=== PATIENT | female | born 1985 | race Caucasian/White ===

== ENCOUNTER 2021-01-16 13:08 | Emergency (ER) | payer OTHER, SELFPAY ==
[2021-01-16 13:15] VITALS: BP 130/80; PULSE 80; RESP 16; TEMP 36.4; O2SAT 99
--- NOTE | 2021-01-16 13:15 | ED.FEMALEGU ---
HPI - Female Genitourinary General Chief complaint: Urogenital-Female Stated complaint: uti symptoms Time Seen by Provider: 01/16/21 13:15 Source: patient and RN notes reviewed History of Present Illness HPI Narrative: Patient is a 36-year-old female who presents the urgent care with complaints of a possible UTI. Patient states that she has blood in the urine as well as a lot of frequency and urgency of urination. Patient states that it started last night. Denies of any fever, chills, nausea, vomiting. Patient does report of some suprapubic pressure and tenderness. Patient has not taken anything [id number] for her symptoms. Denies of any history of UTIs. No other acute complaints. No acute distress noted. Patient aware of the plan of care. Some parts of this dictation were generated by voice recognition software and may contain typographical and/or grammatical inaccuracies. Related Data Home Medications Medication Instructions Recorded Confirmed cariprazine [Vraylar] mg 01/16/21 escitalopram oxalate mg 01/16/21 lamotrigine 01/16/21 Allergies Allergy/AdvReac Type Severity Reaction Status Date / Time morphine Allergy Unknown Verified 11/21/18 15:20 Review of Systems Review of Systems: Narrative: CONSTITUTIONAL: Denies fever, chills, or sweats. EYES: Denies visual changes, redness, or discharge. ENT: Denies rhinorrhea, congestion, sore throat, or otalgia. CARDIOVASCULAR: Denies chest pain, palpitations, or edema. RESPIRATORY: Denies cough or dyspnea. GASTROINTESTINAL: Reports of suprapubic tenderness without nausea, vomiting or diarrhea GENITOURINARY: Reports of hematuria, frequency and urgency SKIN: Denies rash or itching. MUSCULOSKELETAL: Denies back pain, joint pain, or myalgia. NEUROLOGIC: Denies headache, numbness, or weakness. All other systems reviewed are negative, except as documented in HPI. PMFSH Comments At the time of my signature, I reviewed and agree with the nursing past medical, surgical, social, and family history. There is no relevant family history pertinent to the patient complaint. Exam Narrative: Exam Narrative: GENERAL: This is a well-nourished, well-developed patient, in no apparent distress. HEAD: normocephalic, atraumatic. EYES: PERRL. Sclera clear/white. Vision is grossly intact. EARS: External ears normal NOSE: External nose normal with no obvious nasal discharge, nares without redness, no rhinorrhea. THROAT: Mucous membranes moist NECK: Neck supple CARDIOVASCULAR: Regular rate and rhythm without murmurs, gallops, or rubs. RESPIRATORY: Clear to auscultation. Breath sounds equal bilaterally. No wheezes, rales, or rhonchi. GASTROINTESTINAL: Abdomen soft, suprapubic tenderness, nondistended. Bowel sounds are active. SKIN: warm, intact with no suspicious lesions or rash, good texture and turgor. NEURO: awake, alert, and oriented to person, place and time. There were no obvious focal neurologic abnormalities. EXTREMITIES: No clubbing, cyanosis, or edema. BACK: Bilateral CVA tenderness Course Vital Signs Vital signs: Vital Signs Temperature 97.5 F L 01/16/21 13:15 Pulse Rate 80 01/16/21 13:15 Respiratory Rate 16 01/16/21 13:15 Blood Pressure 130/80 01/16/21 13:15 Pulse Oximetry 99 01/16/21 13:15 Temperature 97.5 F L 01/16/21 13:15 Pulse Rate 80 01/16/21 13:15 Respiratory Rate 16 01/16/21 13:15 Blood Pressure 130/80 01/16/21 13:15 Pulse Oximetry 99 01/16/21 13:15 Reviewed MDM - Female Genitourinary MDM Narrative Medical decision making narrative: Reviewed urinalysis results with the patient. She is aware that does show blood and positive nitrates which do indicate urinary tract infection. We will culture the urine and call if medication needs to be changed, based on culture results. If you are questioning your culture results you may call after 3 days to check on the lab work. Advised the patient to complete oral antibiotic regimen
== END 2021-01-16 13:34 | disposition home or self-care (01) ==
PROVIDERS: Emergency Provider Nurse Practitioner Family; PCP Physician Assistant
DX: N39.0 Urinary tract infection, site not specified (principal)
CPT/HCPCS: 81003; 87077; 87086; 87088; 87186; 99213; G0463

== ENCOUNTER 2022-08-10 10:56 | Outpatient (CLI) | payer OTHER, SELFPAY ==
--- NOTE | ~2022-08-10 | XR_ITS ---
EXAMINATION: XR abdomen/kub 1V DATE: 08/10/2022 13:12 INDICATION: Vomiting. TECHNIQUE: A supine view of the abdomen on 2 radiographs was obtained. COMPARISON: None. FINDINGS: There are no dilated loops of bowel. There is a small volume of stool in the colon. Surgica l clips in the right upper quadrant are likely from cholecystectomy. There is an intrauterine device in expected position. IMPRESSION: 1. Normal bowel gas pattern. Reviewed, dictated and finalized at location A. H PUNCHER
--- NOTE | ~2022-08-10 | XR_ITS ---
UGI-AIR CONTRAST/SMALL BOWEL INDICATION: Generalized abdominal pain. Nausea. TECHNIQUE: Serial images of the upper GI tract structures and small bowel are performed following ora l administration of barium using double contrast technique. COMPARISON: None FINDINGS: Barium flowed readily through the esophagus without evidence of hernia or reflux. There is a possible mucosal abnormality of the middistal esophagus with shouldering of the mucosa, although th is is not confirmed on additional images. Gastric contour, mucosa and motility are normal. The duode nal bulb fills and empties regularly and has a normal mucosal pattern. The duodenal sweep is in norm al position. The mucosal pattern of the small bowel is unremarkable with normal transit time to the colon. IMPRESSION: 1.: Possible mucosal abnormality of the middistal esophagus with shouldering of the mucosa. Cannot ex clude mucosal abnormality. Consider correlation with endoscopy. Reviewed, dictated and finalized at location A. TEACHER IMPRESSION: 1.: Possible mucosal abnormality of the middistal esophagus with shouldering of the mucosa. Cannot exclude mucosal abnormality. Consider correlation with endo scopy.
== END 2022-08-10 10:57 | disposition home or self-care (01) ==
PROVIDERS: PCP Physician Assistant; Visit Provider Physician Assistant
DX: R11.10 Vomiting, unspecified (principal); R93.3 Abnormal findings on diagnostic imaging of other parts of digestive tract
CPT/HCPCS: 74018; 74246; 74248

== ENCOUNTER 2022-08-22 12:00 | Emergency (ER) | payer OTHER, SELFPAY ==
[2022-08-22] VITALS (13 sets, daily range): BP systolic 113–138; BP diastolic 58–83; PULSE 44–78; RESP 10–21; TEMP 36.4; O2SAT 96–100
--- NOTE | ~2022-08-22 | CT_ITS ---
EXAMINATION: CT abdomen pelvis w con DATE: 08/22/2022 15:28 INDICATION: Nausea and vomiting. Diarrhea. Epigastric abdominal pain. TECHNIQUE: Computed tomography (CT) of the abdomen and pelvis was performed with 100 mL Omnipaque 350 intravenous contrast. Automated exposure control and iterative reconstruction technique were employe d. The dose-length product was 358.86 mGy-cm. COMPARISON: None. FINDINGS: The visualized portions of the lung bases are clear without pneumonia or pleural effusion. The heart size is normal. No pericardial effusion. The liver is normal. There are changes of cholecys tectomy. The spleen, pancreas, adrenal glands, and kidneys are normal. A 3 mm density left kidney may be contrast or a calyceal stone. There is an intrauterine device in expected position. The appendix is normal. There are no dilated loops of bowel. There are no pathologically enlarged lymph nodes. The re is physiologic fluid in the pelvis. There is mild thoracic spondylosis. IMPRESSION: 1. No etiology for the patient's symptoms. Reviewed, dictated and finalized at location A. NDS KEEPER
[2022-08-22 13:24] LABS: Appearance Urine Clear (Clear); Bilirubin Urine 1+ (Negative); Blood Urine Trace-intact (Negative); Color Urine Yellow (Yellow); Glucose Urine UA Negative (Negative); Ketones Urine 4+ mg/dL (Negative); Leukocyte Esterase Ur Negative LEU/UL (Negative); Nitrate Urine Negative (Negative); Protein Urine 1+ mg/dL (Negative); Specific Grav Ur >= 1.030 (1.001-1.035)
[2022-08-22 13:25] LABS: Basophils Percent Auto 0.2 % (0.2-1.2); Eosinophils Percent Auto 0.1 % (0-4.4); Hematocrit 46.2 % (37.0-47.0); Hemoglobin 16.2 g/dL (12.0-15.0); Immature Granulocyte Absolute 0.04 K/mm3 (0.00-0.031); Immature Granulocyte Percent A 0.4 % (0-0.5); Lymphocytes Percent Auto 5.6 % (18.3-44.2); Mean Corpuscular HGB Conc 35.1 g/dl (32-36); Mean Corpuscular Volume 91.3 fl (80-100); Mean Platelet Volume 9.6 fl (7.4-10.4); Monocytes Absolute Auto 0.3 K/mm3 (0.1-0.6); Monocytes Percent Auto 2.5 % (2.6-8.5); Neutrophils Absolute Auto 9.7 K/mm3 (1.3-6.7); Neutrophils Percent Auto 91.2 % (45.5-73.1); Platelet Count Result 320 k/mm3 (150-375); Red Blood Count 5.06 M/mm3 (4.2-5.4); Red Cell Distribution Width 12.9 % (11.5-14.5); White Blood Count 10.6 K/mm3 (4.5-10.0)
[2022-08-22 13:29] LABS: Mucus Urine Few /lpf; RBC Urine 0-2 /hpf (0-2); Squamous Epithelial Cell Urine Many /hpf (Few); WBC Urine 0-3 /hpf
[2022-08-22 13:31] LABS: Add Urine Microscopic? YES
[2022-08-22 13:39] LABS: Alanine Aminotransferase 111 U/L (6-35); Albumin Level 4.9 g/dL (3.5-5.1); Alkaline Phosphatase 139 U/L (38-126); Anion Gap 10 mmol/L (8-16); Aspartate Amino Transferase 58 U/L (14-36); Blood Urea Nitrogen 10 mg/dL (7-17); Calcium 9.5 mg/dL (8.4-10.2); Carbon Dioxide 23 mmol/L (22-30); Chloride 104 mmol/L (98-107); Estimated CRCL calculation 110 ml/min; Estimated Glomerular Filt Rate > 60; Glucose 191 mg/dL (65-110); Lipase 20 U/L (23-300); Potassium 4.1 mmol/L (3.4-5.0); Sodium 137 mmol/L (137-145)
--- NOTE | 2022-08-22 14:55 | ED.NAVMDI ---
HPI - Nausea/Vomiting/Diarrhea General Chief complaint: Nausea/Vomiting/Diarrhea Stated complaint: n/v Time Seen by Provider: 08/22/22 14:46 History of Present Illness HPI Narrative: Patient is a 37-year-old female with a history of cholecystitis status post cholecystectomy here for evaluation of epigastric abdominal pain, nausea and vomiting today. Patient states that she has been dealing with chronic abdominal pain for the past several months. She has seen her primary care doctor who ordered laboratory and upper GI series that have been unrevealing. She is set to follow-up with GI but has not yet seen them yet. States that today her pain acutely worsened, has been unable to keep down any p.o. No fevers, chills, diarrhea or constipation. Her and daughter had similar symptoms last week, which resolved. Related Data Home Medications Medication Instructions Recorded Confirmed cariprazine 1.5 mg capsule mg 01/16/21 (Vraylar) escitalopram oxalate 20 mg tablet mg 01/16/21 lamotrigine 25 mg tablet 01/16/21 Allergies Allergy/AdvReac Type Severity Reaction Status Date / Time morphine Allergy Unknown Hives Verified 08/22/22 15:11 Review of Systems Review of Systems: Gen: Denies fevers or chills Eyes: Denies eye pain or visual change ENT: Denies congestion Respiratory: Denies shortness of breath or cough CV: Denies chest pain or palpitations GI: Reports abdominal pain, nausea and vomiting denies burning, urgency, frequency or hematuria Musculoskeletal: Denies back pain or muscle pain Neuro: Denies numbness, tingling, weakness or focal weakness Skin: Denies rash Except as documented, all other systems reviewed and negative Exam Narrative: APPEARANCE: Uncomfortable appearing Head: Normocephalic and atraumatic. EYES: PERRLA/EOMI, conjunctivae clear NOSE: No nasal drainage EARS: External ear normal in appearance THROAT: Oropharynx is clear. Mucous membranes are moist. NECK: Supple. No adenopathy, no masses. RESPIRATORY: Airway patent, respirations nonlabored. Clear to auscultation bilaterally, no rales, rhonchi, wheezing. CARDIOVASCULAR: Slow rate. Regular rhythm without murmurs, rubs, or gallops. ABDOMINAL: Tenderness to palpation in the epigastric region. Normoactive bowel sounds. Soft, nontender, nondistended. No rebound tenderness or guarding. MUSCULOSKELETAL: Extremities are warm and well-perfused. Moves all extremities well. No edema. NEURO: Normal speech. No focal neurologic deficits. SKIN: Skin is warm and dry. No rashes. PSYCHIATRIC: Normal affect/mood. Course Vital Signs Vital signs: Vital Signs Temperature 97.5 F L 08/22/22 12:54 Pulse Rate 56 L 08/22/22 12:54 Respiratory Rate 16 08/22/22 12:54 Blood Pressure 131/75 08/22/22 12:54 Pulse Oximetry 100 08/22/22 12:54 Oxygen Delivery Room Air 08/22/22 12:54 Temperature 97.5 F L 08/22/22 12:54 Pulse Rate 58 L 08/22/22 16:16 Respiratory Rate 18 08/22/22 16:16 Blood Pressure 127/83 08/22/22 16:15 Pulse Oximetry 99 08/22/22 16:16 Oxygen Delivery Room Air 08/22/22 12:54 MDM - Nausea/Vomiting/Diarrhea MDM Narrative Medical decision making narrative: 37-year-old female here for evaluation of nausea, vomiting, epigastric pain over the past day, unable to tolerate p.o. at home. She is uncomfortable appearing, noted to have a slow heart rate in the 50s, vital signs otherwise normal. No weakness, AMS or chest pain; ekg is in sinus greta. Does have some tenderness to palpation in the epigastric region with no rebound tenderness or guarding. Labs significant for hemoconcentration. She has a mild transaminitis. She has 4+ ketones in her urine but no evidence of infection. CT abdomen pelvis is negative for acute process. Patient was rehydrated with LR, given nausea and pain medicine with great improvement of her symptoms, able to tolerate PO. Was offered admission for continued hydration which she declined
--- NOTE | 2022-08-22 14:58 | ECG_ITS ---
Measurements Intervals [place] Rate: 52 P: 39 AK: 137 QRS: 35 QRSD: 108 T: 25 QT: 448 QTc: 418 Interpretive Statements SINUS BRADYCARDIA NONSPECIFIC ST-T CHANGE ANTERIORLY NO PREVIOUS ECG AVAILABLE FOR COMPARISON Electronically Signed On 08-23-2022 11:26:31 OPERATING ROOM ASSISTANT by Elva Blancas M.D.
[2022-08-22] MEDS: ONDANSETRON INJ 4 MG/2 ML VIAL IV PUSH (15:10)
[2022-08-22] MEDS: HYDROmorphone HCL INJ (*CRX) 1 MG/ML SYR 0.5 MG IV PUSH (15:10)
[2022-08-22] MEDS: LACTATED RINGERS 1,000 ML 999 ML IV CONT ×2 (15:10→16:23)
[2022-08-22 15:49] LABS: Troponin I < 0.012 ng/mL (0.000-0.034)
[2022-08-22] MEDS: PROCHLORPERAZINE EDISYLATE 10 MG/2 ML VIAL IV PUSH (18:09)
== END 2022-08-22 18:10 | disposition home or self-care (01) ==
PROVIDERS: Emergency Medicine; Emergency Provider Physician Assistant; PCP Physician Assistant
DX: K52.9 Noninfective gastroenteritis and colitis, unspecified (principal); R00.1 Bradycardia, unspecified; R94.31 Abnormal electrocardiogram [ECG] [EKG]
CPT/HCPCS: 36415; 74177; 80053; 81001; 81025; 83690; 84484; 85025; 93005; 96361; 96374; 96375; 99284; J0780; J1170; J2405; J7120; Q9967

== ENCOUNTER → 2022-08-30 09:27 | Outpatient (CLI) | payer OTHER, SELFPAY ==
--- NOTE | ~2022-08-30 | US_ITS ---
US thyroid INDICATION: Abnormal thyroid function tests. TECHNIQUE: Real-time sonographic images of the thyroid gland were obtained. COMPARISON: No prior studies for comparison. FINDINGS: The right thyroid lobe measures 5 x 1.8 x 1.6 cm. The left thyroid lobe measures 4.5 x 1.3 x 1.7 cm. There is normal echotexture and echogenicity throughout the thyroid gland. No discrete nod ules identified. Normal vascular flow is present. IMPRESSION: 1. Normal thyroid without discrete nodule or abnormal vascularity. Reviewed, dictated and finalized at location L. TIC INSTRUCTOR
== END ==
PROVIDERS: PCP Physician Assistant; Visit Provider Physician Assistant
DX: R94.6 Abnormal results of thyroid function studies (principal)
CPT/HCPCS: 76536

== ENCOUNTER 2025-05-27 14:00 | Emergency (ER) | payer OTHER, SELFPAY ==
--- NOTE | ~2025-05-27 | CT_ITS ---
EXAMINATION: CT abdomen pelvis w con DATE: 05/27/2025 17:34 INDICATION: 40-year-old with upper abdominal pain, nausea vomiting and diarrhea. TECHNIQUE: Computed tomography (CT) of the abdomen and pelvis was performed 100 mL intravenous contrast. Automated exposure control and iterative reconstruction technique were employed. The dose-length product was 761.59 mGy-cm. COMPARISON: CT dated 08/22/2022. FINDINGS: Lung bases do not show acute findings. Small hiatus hernia. No focal lesions liver and spleen. Gallbladder is absent. Bile ducts, pancreas and kidneys do not show acute findings. No evidence of small bowel obstruction. Normal size appendix. No evidence of small bowel obstruction. No pelvic masses or fluid collections. IUD in place. IMPRESSION: 1. No significant acute findings in the upper abdomen and in the pelvis. Reviewed, dictated and finalized at location T. [facility]
[2025-05-27 14:22] VITALS: BP 151/84; PULSE 56; RESP 18; TEMP 36.4; O2SAT 99
--- NOTE | 2025-05-27 14:41 | ED_ITS ---
HPI - Nausea/Vomiting/Diarrhea General Chief complaint: Nausea/Vomiting/Diarrhea <Yaneth Mendez PA-C - Last Filed: 05/27/25 14:52> Stated complaint: vomiting since monday night <Yaneth Mendez PA-C - Last Filed: 05/27/25 14:52> Time Seen by Provider: 05/27/25 14:41 <Yaneth Mendez PA-C - Last Filed: 05/27/25 14:52> Focused HPI: Patient is a 40 year-old female who presents the ED with report of nausea, vomiting, diarrhea. Patient reports she was started on Zepbound 2.5 mg last Monday. Had 2 days of nausea and vomiting after her 1st dose, but then states she felt improved. Took her 2nd dose this past Monday and has had persistent N/V/D since then. Has been unable to keep down any food or drink. Reports having some streaks of blood in her emesis. Reports diffuse pain throughout her abdomen, worse throughout her upper abdomen. Denies fevers, cough, congestion. Denies family members with similar symptoms. GENERAL: Uncomfortable-appearing, well-nourished, and in no acute distress. HEAD: Normocephalic, atraumatic. CHEST: Clear to auscultation. ?No respiratory distress. HEART: Regular rate and rhythm.? ABD: Diffuse tenderness, more focal TTP in epigastric region/RUQ NEURO: ?Alert and oriented x3. Patient screened in triage and initial orders placed.? ?Additional care and disposition to be based upon?diagnostic testing and treatment. <Yaneth Mendez PA-C - Last Filed: 05/27/25 14:52> Source: patient <Yaneth Mendez PA-C - Last Filed: 05/27/25 14:52> Mode of arrival: ambulatory <Yaneth Mendez PA-C - Last Filed: 05/27/25 14:52> Limitations: no limitations <KYE Knight Last Filed: 05/27/25 14:52> History of Present Illness HPI Narrative: I agree with the above HPI <Chris Love MD - Last Filed: 06/01/25 08:04> Related Data Home medications: Home Medications ?Medication ?Instructions ?Recorded ?Confirmed ?Last Taken ?Type cariprazine 1.5 mg capsule mg 01/16/21 Unknown Histor y (Monetr) escitalopram oxalate 20 mg tablet mg 01/16/21 Unknown History lamotrigine 25 mg tablet 01/16/21 Unknown History <Yaneth Mendez PA-C - Last Filed: 05/27/25 14:52> Allergies/Adverse reactions: Allergies Allergy/AdvReac Type Severity Reaction Status Date / Time morphine Allergy Unknown Hives Verified 08/22/22 15:11 <Yaneth Mendez PA-C - Last Filed: 05/27/25 14:52> Review of Systems 2 Review of Systems: All systems reviewed & are unremarkable except as noted in HPI and below <Chris Love MD - Last Filed: 06/01/25 08:04> Exam 2 Narrative: APPEARANCE: Uncomfortable appearing HEAD: normocephalic, atraumatic. EYES: PERRLA/EOMI, conjunctivae clear. NOSE: Normal no drainage EARS:TMS clear with good light reflex. THROAT: Pharynx clear, no exudate. NECK: Supple. No adenopathy, no masses. RESPIRATORY: Airway patent, respirations nonlabored. Clear to auscultation bilaterally, no rales, rhonchi, wheezing. CARDIOVASCULAR: Regular rate and rhythm without murmurs rubs or gallops. ABDOMINAL: Soft, nontender, nondistended, normal bowel sounds MUSCULOSKELETAL: Moves all extremities. Strength/ROM intact, No edema, No calf tenderness. NEURO: Alert. Cranial nerves II through XII intact. Good gait. Good coordination SKIN: Warm, dry. Normal Color <Chris Love MD - Last Filed: 06/01/25 08:04> Course Vital Signs Vital signs: Vital Signs Temperature 97.6 F 05/27/25 14:22 Pulse Rate 56 L 05/27/25 14:22 Respiratory Rate 18 05/27/25 14:22 Blood Pressure 151/84 H 05/27/25 14:22 Pulse Oximetry 99 05/27/25 14:22 Temperature 97.6 F 05/27/25 14:22 Pulse Rate 57 L 05/27/25 18:56 Respiratory Rate 16 05/27/25 18:56 Blood Pressure 126/75 05/27/25 18:56 Pulse Oximetry 99 05/27/25 18:56 Oxygen Delivery Room Air 05/27/25 16:34 <Yaneth Mendez PA-C - Last Filed: 05/27/25 14:52> Vital Signs Temperature 97.6 F 05/27/25 14:22 Pulse Rate 56 L 05/27/25 14:22 Respiratory Rate 18 05/27/25 14:22 Blood Pressure 151/84 H 05/27/25 14:22 Pulse Oximetry 99 05/27/25 14:22 Temperature 97.6 F 05/27/25 14:22 Pulse Rate 57 L 05/27/25 18:56 Respiratory Rate 16 05/27/25 18:56 Blood Pressure 126/75 05/27/25 18:56 Pulse Oximetry 99 05/27/25 18:56 Oxygen Delivery Room Air 05/27/25 16:34 <Chris Love MD - Last Filed: 06/01/25 08:04> MDM - Nausea/Vomiting/Diarrhea MDM Narrative Medical decision making narrative: MSE by KARMEN in triage <Yaneth Mendez PA-C - Last Filed: 05/27/25 14:52> MSE by KARMEN in triage 40-year-old female presenting to the emergency department for evaluation for nausea vomiting abdominal cramping secondary to GLP 1 inhibitor. Patient is currently afebrile but does have a leukocytosis of 13.2 and hemoglobin of 16.7. Patient's creatinine is 0.69. Patient does have mild elevation of ALT alk-phos with normal lipase and normal T bili. UA was negative for infection. CT abdomen pelvis shows no acute abnormality. Patient was treated with 2 doses of IV Reglan, a L of normal saline a L of lactated Ringer's and a GI cocktail. Patient was advised to refrain from additional GLP 1 inhibitors, patient will be provided Reglan for nausea control. Patient was advised to follow a clear liquid diet. Patient was comfortable the plan for discharge and close follow- up. I suspect patient's symptoms are secondary to an adverse medication reaction. No infectious etiology was identified. <Chris Love MD - Last Filed: 06/01/25 08:04> Differential Diagnosis Differential diagnosis: Likely traveler's diarrhea, food poisoning, gastroenteritis, clostridium difficile infection, drug-induced nausea and vomiting and dehydration <Chris Love MD - Last Filed: 06/01/25 08:04> Lab Data Attestation: I reviewed the patient's lab results. <Chris Love MD - Last Filed: 06/01/25 08:04> Result diagrams: 05/27/25 15:15 05/27/25 15:15 <Yaneth Mendez PA-C - Last Filed: 05/27/25 14:52> Labs: Lab Results 05/27/25 Range/Units 15:15 WBC 13.2 H (4.5-10.0) K/mm3 RBC 5.11 (4.2-5.4) M/mm3 Hgb 16.7 H (12.0-15.0) g/dL Hct 46.3 (37.0-47.0) % MCV 90.6 (80-100) fl MCH 32.7 (26-34) pg MCHC 36.1 H (32-36) g/dl RDW 13.1 (11.5-14.5) % Plt Count 461 H (150-375) k/mm3 MPV 8.9 (7.4-10.4) fl Immature Gran % (Auto) 0.3 (0-0.5) % Neut % (Auto) 70.4 (45.5-73.1) % Lymph % (Auto) 21.5 (18.3-44.2) % Coos % (Auto) 7.4 (2.6-8.5) % Eos % (Auto) 0.3 (0-4.4) % Baso % (Auto) 0.1 L (0.2-1.2) % Lymph # (Auto) 2.83 (0.9-3.2) K/mm3 Coos # (Auto) 1.0 H (0.1-0.6) K/mm3 Eos # (Auto) 0.0 (0-0.3) K/mm3 Baso # (Auto) 0.0 (0.0-0.1) K/mm3 Abs Immat Gran (auto) 0.04 H (0.00-0.031) K/mm3 Absolute Neuts (auto) 9.3 H (1.3-6.7) K/mm3 Absolute Nucleated RBC 0.000 (0.0-0.012) K/mm3 Nucleated RBC % 0.0 (0.0-0.2) % Sodium 140 (137-145) mmol/L Potassium 3.4 (3.4-5.0) mmol/L Chloride 99 (98-107) mmol/L Carbon Dioxide 28 (22-30) mmol/L Anion Gap 13 H (4-12) mmol/L BUN 10 (7-17) mg/dL Creatinine 0.69 L (0.7-1.0) mg/dL Estim Creat Clear Calc 91 ml/min Estimated GFR > 60 (59 - ) Glucose 115 H (65-110) mg/dL Lactic Acid 1.3 (0.7-2.0) mmol/L Calcium 9.9 (8.4-10.2) mg/dL Magnesium 2.0 (1.6-2.3) mg/dL Total Bilirubin 0.8 (0.2-1.3) mg/dL AST 30 (14-36) U/L ALT 37 H (6-35) U/L Alkaline Phosphatase 141 H (38-126) U/L Total Protein 8.8 H (6.3-8.2) g/dL Albumin 5.0 (3.5-5.1) g/dL Lipase 97 (23-300) U/L Urine Color Dark yellow (Yellow) Urine Appearance Cloudy H (Clear) Urine pH 5.5 (5.0-9.0) Ur Specific [place] 1.035 (1.001-1.035) Urine Protein 3+ H (Negative) mg/dL Urine Glucose (UA) Negative (Negative) mg/dL Urine Ketones 2+ H (Negative) mg/dL Ur Blood (Man) 2+ H (Negative) Urine Nitrate Negative (Negative) Urine Bilirubin Negative (Negative) Urine Urobilinogen 1.0 (<2.0) mg/dL Add Ur Microanalysis Reviewed Leukocyte Esterase Rfl Negative (Negative) GREG/UL Urine RBC 21-50 H (0-2) /hpf Urine WBC 0-5 (0-3) /hpf Ur Squamous Epith Cells Few (Few) /hpf Urine Bacteria None seen /hpf Urine Casts 0-2 Urine Test Negative <Yaneth Mendez PA-C - Last Filed: 05/27/25 14:52> Lab Results 05/27/25 Range/Units 15:15 WBC 13.2 H (4.5-10.0) K/mm3 RBC 5.11 (4.2-5.4) M/mm3 Hgb 16.7 H (12.0-15.0) g/dL Hct 46.3 (37.0-47.0) % MCV 90.6 (80-100) fl MCH 32.7 (26-34) pg MCHC 36.1 H (32-36) g/dl RDW 13.1 (11.5-14.5) % Plt Count 461 H (150-375) k/mm3 MPV 8.9 (7.4-10.4) fl Immature Gran % (Auto) 0.3 (0-0.5) % Neut % (Auto) 70.4 (45.5-73.1) % Lymph % (Auto) 21.5 (18.3-44.2) % Coos % (Auto) 7.4 (2.6-8.5) % Eos % (Auto) 0.3 (0-4.4) % Baso % (Auto) 0.1 L (0.2-1.2) % Lymph # (Auto) 2.83 (0.9-3.2) K/mm3 Coos # (Auto) 1.0 H (0.1-0.6) K/mm3 Eos # (Auto) 0.0 (0-0.3) K/mm3 Baso # (Auto) 0.0 (0.0-0.1) K/mm3 Abs Immat Gran (auto) 0.04 H (0.00-0.031) K/mm3 Absolute Neuts (auto) 9.3 H (1.3-6.7) K/mm3 Absolute Nucleated RBC 0.000 (0.0-0.012) K/mm3 Nucleated RBC % 0.0 (0.0-0.2) % Sodium 140 (137-145) mmol/L Potassium 3.4 (3.4-5.0) mmol/L Chloride 99 (98-107) mmol/L Carbon Dioxide 28 (22-30) mmol/L Anion Gap 13 H (4-12) mmol/L BUN 10 (7-17) mg/dL Creatinine 0.69 L (0.7-1.0) mg/dL Estim Creat Clear Calc 91 ml/min Estimated GFR > 60 (59 - ) Glucose 115 H (65-110) mg/dL Lactic Acid 1.3 (0.7-2.0) mmol/L Calcium 9.9 (8.4-10.2) mg/dL Magnesium 2.0 (1.6-2.3) mg/dL Total Bilirubin 0.8 (0.2-1.3) mg/dL AST 30 (14-36) U/L ALT 37 H (6-35) U/L Alkaline Phosphatase 141 H (38-126) U/L Total Protein 8.8 H (6.3-8.2) g/dL Albumin 5.0 (3.5-5.1) g/dL Lipase 97 (23-300) U/L Urine Color Dark yellow (Yellow) Urine Appearance Cloudy H (Clear) Urine pH 5.5 (5.0-9.0) Ur Specific [place] 1.035 (1.001-1.035) Urine Protein 3+ H (Negative) mg/dL Urine Glucose (UA) Negative (Negative) mg/dL Urine Ketones 2+ H (Negative) mg/dL Ur Blood (Man) 2+ H (Negative) Urine Nitrate Negative (Negative) Urine Bilirubin Negative (Negative) Urine Urobilinogen 1.0 (<2.0) mg/dL Add Ur Microanalysis Reviewed Leukocyte Esterase Rfl Negative (Negative) GREG/UL Urine RBC 21-50 H (0-2) /hpf Urine WBC 0-5 (0-3) /hpf Ur Squamous Epith Cells Few (Few) /hpf Urine Bacteria None seen /hpf Urine Casts 0-2 Urine Test Negative <Chris Love MD - Last Filed: 06/01/25 08:04> Discharge Plan Discharge Clinical Impression: Drug-induced nausea and vomiting <Yaneth Mendez PA-C - Last Filed: 05/27/25 14:52> Patient Disposition: Home <Yaneth Mendez PA-C - Last Filed: 05/27/25 14:52> Condition: Stable <Yaneth Mendez PA-C - Last Filed: 05/27/25 14:52> Instructions: Antibiotic Form, Clear Liquid Diet (ED), Acute Nausea and Vomiting (ED) <Yaneth Mendez PA-C - Last Filed: 05/27/25 14:52> Additional Instructions: Take your home Zofran for nausea control and Reglan for additional nausea control as needed. Follow a clear liquid diet for the next 1-3 days. Have close follow-up with your physicians. If you have any worsening symptoms please call or return to the emergency department. <Yaneth Mendez PA-C - Last Filed: 05/27/25 14:52> Patient Language: French <Yaneth Mendez PA-C - Last Filed: 05/27/25 14:52> Prescriptions: New metoclopramide HCl [Reglan] 10 mg tablet 10 mg PO Q6H PRN (Reason: nausea and vomiting) Qty: 14 0RF No Action lamotrigine 25 mg tablet escitalopram oxalate 20 mg tablet Vraylar 1.5 mg capsule nitrofurantoin monohyd/m-cryst [Macrobid] 100 mg capsule 100 mg PO Q12H 7 Days Qty: 14 0RF Rx Instructions: must administer with a meal/food phenazopyridine [Pyridium] 100 mg tablet 100 mg PO TID PRN (Reason: pain) 3 Days Qty: 9 0RF prochlorperazine maleate [Compazine] 5 mg tablet 5 mg PO Q8H PRN (Reason: nausea and vomiting) Qty: 7 0RF <Yaneth Mendez PA-C - Last Filed: 05/27/25 14:52> Follow-up/Referrals: Monique,KYE Meza [Primary Care Provider, Unknown] <Yaneth Mendez PA-C - Last Filed: 05/27/25 14:52>
[2025-05-27] MEDS: ONDANSETRON INJ 4 MG/2 ML VIAL IV PUSH (15:15)
[2025-05-27] MEDS: FAMOTIDINE 20 MG/2 ML VIAL IV PUSH (15:15)
[2025-05-27] MEDS: SODIUM CHLORIDE 0.9% IV 1,000 ML 999 ML IV CONT (15:16)
[2025-05-27 15:29] LABS: Hematocrit 46.3 % (37.0-47.0); Hemoglobin 16.7 g/dL (12.0-15.0); Immature Granulocyte Percent A 0.3 % (0-0.5); Lymphocytes Absolute Auto 2.83 K/mm3 (0.9-3.2); Mean Corpuscular HGB Conc 36.1 g/dl (32-36); Mean Corpuscular Hemoglobin 32.7 pg (26-34); Mean Corpuscular Volume 90.6 fl (80-100); Nucleated Red Blood Cells Absolute Auto 0.000 K/mm3 (0.0-0.012); Nucleated Red Blood Cells Perc 0.0 % (0.0-0.2); Platelet Count Result 461 k/mm3 (150-375); Red Blood Count 5.11 M/mm3 (4.2-5.4); White Blood Count 13.2 K/mm3 (4.5-10.0)
--- NOTE | 2025-05-27 15:30 | PC.NURSE ---
Lab called to add bedside preg to pts labs for CT.
[2025-05-27 15:50] LABS: Alanine Aminotransferase 37 U/L (6-35); Albumin Level 5.0 g/dL (3.5-5.1); Alkaline Phosphatase 141 U/L (38-126); Anion Gap 13 mmol/L (4-12); Aspartate Amino Transferase 30 U/L (14-36); Bilirubin,Total 0.8 mg/dL (0.2-1.3); Blood Urea Nitrogen 10 mg/dL (7-17); Calcium 9.9 mg/dL (8.4-10.2); Carbon Dioxide 28 mmol/L (22-30); Chloride 99 mmol/L (98-107); Estimated CRCL calculation 91 ml/min; Estimated Glomerular Filt Rate > 60; Glucose 115 mg/dL (65-110); Lipase 97 U/L (23-300); Magnesium 2.0 mg/dL (1.6-2.3); Potassium 3.4 mmol/L (3.4-5.0); Sodium 140 mmol/L (137-145); Total Protein 8.8 g/dL (6.3-8.2)
[2025-05-27 16:02] LABS: Add Urine Microscopic? YES; Appearance Urine Cloudy (Clear); Glucose Urine UA Negative (Negative); Leukocyte Esterase Ur Negative LEU/UL (Negative); Need Manual Microscopic Reviewed; Nitrate Urine Negative (Negative); Non Pathogenic Casts 0-2; Specific Grav Ur 1.035 (1.001-1.035)
[2025-05-27 16:34] VITALS: BP 126/74; PULSE 60; RESP 16; O2SAT 94
[2025-05-27] MEDS: METOCLOPRAMIDE HCL INJ 10 MG/2 ML VIAL IV PUSH ×2 (16:34→18:07)
[2025-05-27] MEDS: LACTATED RINGERS 1,000 ML 999 ML IV CONT (16:40)
--- NOTE | 2025-05-27 16:57 | PC.NURSE ---
Lab called again to have them add urine preg to pts lab results
[2025-05-27 17:02] LABS: Pregnancy On Board Control Positive
[2025-05-27 18:56] VITALS: BP 126/75; PULSE 57; RESP 16; O2SAT 99
== END 2025-05-27 18:57 | disposition home or self-care (01) ==
PROVIDERS: Physician Assistant; Emergency Provider Emergency Medicine; PCP Physician Assistant
DX: R11.2 Nausea with vomiting, unspecified (principal); T50.995A Adverse effect of other drugs, medicaments and biological substances, initial encounter
CPT/HCPCS: 36415; 74177; 80053; 81001; 81025; 83605; 83690; 83735; 85025; 96361; 96374; 96375; 99284; A9270; J2405; J2765; J7030; J7120; Q9967